=== PATIENT | female | born 1995 | race American Indian/Alaskan Native ===

== ENCOUNTER 2020-01-04 02:11 | Emergency (ER) | payer OTHER ==
[2020-01-04 02:17] VITALS: BP 134/84
[2020-01-04] MEDS ORDERED: METOCLOPRAMIDE 10 MG TAB PO ONE (03:10)
[2020-01-04] MEDS ORDERED: dexAMETHasone 20 MG/5 ML VIAL IM ONE (03:10)
[2020-01-04] MEDS ORDERED: ACETAMINOPHEN 500 MG TAB PO ONE (03:10)
[2020-01-04] MEDS ORDERED: diphenhydrAMINE 25 MG CAP PO ONE (03:10)
--- NOTE | 2020-01-04 04:10 | Emergency Department Report ---
ED Headache HPI - General Chief Complaint: Headache Stated Complaint: HEAD PAIN Time Seen by Provider: 01/04/20 03:10 - History of Present Illness Initial Comments: Ms. Denney is a 24-year-old -[place] female who presents with occipital headache times today. Headache described as 4/10 aching sharp. Patient has history of headaches similar to pain in the past. She denies photophobia there is no nausea vomiting, lightheadedness, dizziness. Symptoms are exacerbated by movement and activity. Symptoms are relieved by rest. Patient remains alert and oriented x3 she is amatory with steady gait and drove self to ED tonight. She denies fall ,injury, or trauma. Timing/Duration: 24 hours Quality: moderate Head Injury Location: occipital Recent Head Trauma: occasional headaches Allergies/Adverse Reactions: Allergies No Known Allergies Allergy (Verified 01/04/20 02:17) Home Medications: Ambulatory Orders Ketorolac [Toradol] 10 mg PO Q8HR PRN #20 tablet 12/04/19 Acetaminophen [Acetaminophen TAB] 1,000 mg PO Q6HR PRN #30 tablet 01/04/20 Metoclopramide [Reglan] 10 mg PO TID PRN #30 tab 01/04/20 diphenhydrAMINE [Benadryl CAP] 25 mg PO Q8HR PRN #30 capsule 01/04/20 ED Review of Systems ROS: Stated complaint: HEAD PAIN Other details as noted in HPI Constitutional: denies: chills, fever Eyes: denies: eye pain, eye discharge, vision change ENT: denies: ear pain, throat pain Respiratory: denies: cough, shortness of breath, wheezing Cardiovascular: denies: chest pain, palpitations Endocrine: no symptoms reported Gastrointestinal: denies: abdominal pain, nausea, diarrhea Genitourinary: denies: urgency, dysuria, discharge Musculoskeletal: denies: back pain, joint swelling, arthralgia Skin: denies: rash, lesions Neurological: headache. denies: weakness, numbness, paresthesias, confusion, abnormal gait, vertigo Psychiatric: denies: anxiety, depression Hematological/Lymphatic: as per HPI ED Past Medical Hx - Past Medical History Previous Medical History?: No - Surgical History Past Surgical History?: No - Social History Smoking Status: Never Smoker Substance Use Type: None - Medications Home Medications: Home Medications Medication Instructions Recorded Confirmed Last Taken Type Ketorolac [Toradol] 10 mg PO Q8HR PRN #20 tablet 12/04/19 Unknown Rx Acetaminophen [Acetaminophen TAB] 1,000 mg PO Q6HR PRN #30 tablet 01/04/20 Unknown Rx Metoclopramide [Reglan] 10 mg PO TID PRN #30 tab 01/04/20 Unknown Rx diphenhydrAMINE [Benadryl CAP] 25 mg PO Q8HR PRN #30 capsule 01/04/20 Unknown Rx ED Physical Exam - General Limitations: No Limitations General appearance: alert, in no apparent distress - Head Head exam: Present: atraumatic, normocephalic - Eye Eye exam: Present: normal appearance, PERRL, EOMI Pupils: Present: normal accommodation - ENT ENT exam: Present: normal exam, normal orophraynx, mucous membranes moist, TM's normal bilaterally, normal external ear exam - Neck Neck exam: Present: normal inspection, full ROM. Absent: tenderness, meningismus, lymphadenopathy, thyromegaly - Respiratory Respiratory exam: Present: normal lung sounds bilaterally. Absent: respiratory distress, wheezes, stridor, chest wall tenderness - Cardiovascular Cardiovascular Exam: Present: regular rate, normal rhythm, normal heart sounds - GI/Abdominal GI/Abdominal exam: Present: soft, normal bowel sounds. Absent: distended, tenderness, bruit, hernia - Rectal Rectal exam: Present: deferred - Extremities Exam Extremities exam: Present: normal inspection, full ROM, normal capillary refill. Absent: tenderness - Back Exam Back exam: Present: normal inspection, full ROM. Absent: tenderness, CVA tenderness (R), CVA tenderness (L), vertebral tenderness, rash noted - Neurological Exam Neurological exam: Present: alert, oriented X3, CN II-XII intact, normal gait, reflexes normal. Absent: motor sensory deficit - Expanded Neurological Exam Expanded Patient oriented to: Present: person, place, time Speech: Present: fluid speech Cranial nerves: EOM's Intact: Normal, Gag Reflex: Normal, Tongue Deviation: Normal, Nystagmus: Normal Motor strength exam: RUE: 5, LUE: 5, RLE: 5, LLE: 5 Best Eye Response ([place]): (4) open spontaneously Best Motor Response ([place]): (6) obeys commands Best Verbal Response ([place]): (5) oriented Manav Total: 15 - Psychiatric Psychiatric exam: Present: normal affect, normal mood - Skin Skin exam: Present: warm, dry, intact, normal color. Absent: rash ED Course Vital Signs 01/04/20 02:15 Temperature 98.5 F Pulse Rate 84 Respiratory 16 Rate Blood Pressure 134/84 O2 Sat by Pulse 97 Oximetry ED Medical Decision Making - Medical Decision Making Symptoms are improved with medications given in ED. Patient advises headache pain now 10/25. Plan DC to home with NSAIDs Benadryl as needed headache follow- up with PCP in 2 to 3 days , patient will continue to hydrate as directed, patient verbalizes agreement and understanding with discharge plan. Patient will be DC'd home in stable condition at this time. Critical care attestation.: If time is entered above; I have spent that time in minutes in the direct care of this critically ill patient, excluding procedure time. ED Disposition Clinical Impression: Headache Qualifiers: Headache type: unspecified Headache chronicity pattern: acute headache Intractability: not intractable Qualified Code(s): R51 - Headache Disposition: DC-01 TO HOME OR SELFCARE Is pt being admited?: No Does the pt Need Aspirin: No Condition: Stable Instructions: Acute Headache (ED) Prescriptions: Acetaminophen [Acetaminophen TAB] 1,000 mg PO Q6HR PRN #30 tablet PRN Reason: Headache diphenhydrAMINE [Benadryl CAP] 25 mg PO Q8HR PRN #30 capsule PRN Reason: Headache Metoclopramide [Reglan] 10 mg PO TID PRN #30 tab PRN Reason: headche Referrals: ANNIE GALLARDO MD [Staff Physician] - 3-5 Days Forms: Work/School Release Form(ED) Time of Disposition: 04:15
== END 2020-01-04 04:22 | disposition home or self-care (01) ==
LOC: ED 02:11
DX: R51 Headache (principal); Z79.899 Other long term (current) drug therapy
CPT/HCPCS: 96372; 99282; J1100